=== PATIENT | female | born 1940 | race Caucasian/White ===

== ENCOUNTER → 2021-05-08 17:41 | Outpatient (CLI) | payer MEDICARE, SELFPAY ==
--- NOTE | ~2021-05-08 | DEXA_ITS ---
Bone Density Report Name: Brynn Damian Age: 81 Sex: Female Ethnicity: White Date of : 1940 Indication: postmenopausal; screening for osteoporosis; height loss; Referring Provider: YaniDave Study: Bone densitometry was performed. Exam Date: May 08, 2021 Accession number: [id number] Bone Density: Region BMD T-score Z-score Classification AP Spine (L1, L4) 0.944 -0.8 1.8 Normal Femoral Neck (Left) 0.634 -1.9 0.3 Osteopenia Total Hip (Left) 0.731 -1.7 0.3 Osteopenia Femoral Neck (Right) 0.666 -1.6 0.6 Osteopenia Total Hip (Right) 0.703 -2.0 0.0 Osteopenia Total Hip Mean 0.717 -1.9 0.2 Osteopenia World Health Organization criteria for BMD impression classify patients as: Normal (T-score at or above -1.0), Osteopenia (T-score between -1.0 and -2.5), or Osteoporosis (T-score at or below -2.5). 10-year Fracture Risk(1): Major Osteoporotic Fracture 11% Hip Fracture 3.4% Reported Risk Factors: [place] (), Neck BMD=0.634, BMI=16.7 (1) FRAX(R) Version 3.08. Fracture probability calculated for an untreated patient. Fracture probability may be lower if the patient has received treatment. Clinical Information Provided by Patient: Has used the following medications: Vitamin D Patient maximum height was 60 Menopause Age: 53 No regular weight bearing exercise Onset of menses at age 14 Number of children 3 Impression: The patient has low bone mass, based on the Right Total Hip T-score. The patient has an estimated ten-year risk of hip fracture of 3.4% and an estimated ten-year risk of major fracture of 11%, based on the WHO FRAX algorithm. Discussion: BONE DENSITY IS LOW AT ONE OR MORE SKELETAL SITES. THE PATIENT'S BMD AND CLINICAL RISK FACTORS CONTRIBUTE TO THIS PATIENT'S INCREASED RISK OF FRACTURE. This patient's lowest T-score is low at one or more skeletal sites. It meets the World Health Organization's (WHO) criteria for ?low bone mass? (T-score between -1.0 and -2.5). The patient's 10-year risk of hip fracture as calculated by FRAX exceeds the threshold where pharmacological therapy is recommended by the National Osteoporosis Foundation (NOF). However, all treatment decisions require clinical judgment and consideration of individual patient factors, including patient preferences, comorbidities, previous drug use, risk factors not captured in the FRAX model (e.g., frailty, falls, vitamin D deficiency, increased bone turnover, interval significant decline in bone density) and possible under or overestimation of fracture risk by FRAX. The patient should follow a healthful lifestyle (good nutrition with adequate calcium and vitamin D, and appropriate weight-bearing exercise). Follow-Up: Consider a repeat BMD and Vertebral Fracture Assessment (VFA) exam in 2 years or so
--- NOTE | ~2021-05-08 | MM_ITS ---
EXAMINATION: MM screening eddie BI w marialuisa HISTORY: Screening TECHNIQUE: Craniocaudal and mediolateral oblique 3-D tomosynthesis images were obtained and synthetic 2-D images were generated. CAD analysis was submitted and interpreted. COMPARISON: Comparison to multiple prior studies sequentially, with oldest reviewed study dated 05/2013. BREAST PARENCHYMAL COMPOSITION: The breasts are heterogenously dense, which may obscure small masses FINDINGS: There is no evidence of suspicious mass, calcification, or architectural distortion to sugg est malignancy in either breast. There has been no suspicious interval change. IMPRESSION: 1. No mammographic evidence of malignancy. 2. Recommend routine screening mammography in one year. BI-RADS Category 1: Negative Reviewed, dictated and finalized at location A.
== END ==
PROVIDERS: PCP Internal Medicine; Visit Provider Internal Medicine
DX: Z12.31 Encounter for screening mammogram for malignant neoplasm of breast (principal); Z78.0 Asymptomatic menopausal state; M85.89 Other specified disorders of bone density and structure, multiple sites
CPT/HCPCS: 77063; 77067; 77080

== ENCOUNTER 2024-02-14 14:54 | Emergency (ER) | payer MEDICARE, SELFPAY ==
[2024-02-14] VITALS (10 sets, daily range): BP systolic 117–170; BP diastolic 46–110; PULSE 68–97; RESP 12–25; TEMP 36.6; O2SAT 97–100
--- NOTE | ~2024-02-14 | CT_ITS ---
EXAMINATION: CT brain wo con DATE: 02/14/2024 15:35 INDICATION: fall . TECHNIQUE: Computed tomography (CT) of the head was performed without intravenous contrast. The mA wa s adjusted according to patient size. Iterative reconstruction technique was employed. The dose-lengt h product was 605.33 mGy-cm. COMPARISON: None. FINDINGS: No acute intracranial hemorrhage or extra-axial fluid collection. No hydrocephalus, mass, or herniation. No acute ischemic infarct. Unremarkable dural venous sinus attenuation. No acute osseous abnormality. The aerated spaces are clear. Moderate atrophy and chronic white matter change. Atherosclerotic intracranial calcification. IMPRESSION: No acute intracranial process. Reviewed, dictated and finalized at location K.
[2024-02-14] MEDS: LORazepam INJ (*CRX) 2 MG/ML VIAL 0.5 MG IV PUSH (15:39)
[2024-02-14] MEDS: SODIUM CHLORIDE 0.9% IV 1,000 ML 999 ML IV CONT (15:40)
[2024-02-14 15:54] LABS: Basophils Absolute Auto 0.1 K/mm3 (0.0-0.1); Basophils Percent Auto 0.6 % (0.2-1.2); Eosinophils Absolute Auto 0.1 K/mm3 (0-0.3); Eosinophils Percent Auto 0.6 % (0-4.4); Hemoglobin 15.5 g/dL (12.0-15.0); Immature Granulocyte Absolute 0.03 K/mm3 (0.00-0.031); Immature Granulocyte Percent A 0.4 % (0-0.5); Lymphocytes Absolute Auto 1.13 K/mm3 (0.9-3.2); Mean Corpuscular HGB Conc 33.7 g/dl (32-36); Mean Corpuscular Hemoglobin 30.8 pg (26-34); Mean Corpuscular Volume 91.3 fl (80-100); Mean Platelet Volume 11.1 fl (7.4-10.4); Monocytes Absolute Auto 0.7 K/mm3 (0.1-0.6); Monocytes Percent Auto 8.9 % (2.6-8.5); Neutrophils Absolute Auto 6.1 K/mm3 (1.3-6.7); Neutrophils Percent Auto 75.5 % (45.5-73.1); Platelet Count Result 182 k/mm3 (150-375); Red Blood Count 5.04 M/mm3 (4.2-5.4); Red Cell Distribution Width 14.3 % (11.5-14.5); White Blood Count 8.1 K/mm3 (4.5-10.0)
[2024-02-14 15:55] LABS: Appearance Urine Clear (Clear); Bilirubin Urine Negative (Negative); Blood Urine Negative (Negative); Color Urine Yellow (Yellow); Glucose Urine UA 3+ mg/dL (Negative); Ketones Urine Trace mg/dL (Negative); Leukocyte Esterase Ur Negative LEU/UL (Negative); Nitrate Urine Negative (Negative); Protein Urine Negative (Negative); Urobilinogen Urine 0.2 mg/dL (<2.0); pH Urine 5.5 (5.0-9.0)
[2024-02-14 16:11] LABS: Specific Grav Ur 1.034 (1.001-1.035)
[2024-02-14 16:12] LABS: Add Urine Microscopic? NO; Alanine Aminotransferase 34 U/L (6-35); Alkaline Phosphatase 103 U/L (38-126); Anion Gap 13 mmol/L (4-12); Aspartate Amino Transferase 56 U/L (14-36); Bilirubin,Total 1.1 mg/dL (0.2-1.3); Blood Urea Nitrogen 26 mg/dL (7-17); Calcium 10.5 mg/dL (8.4-10.2); Carbon Dioxide 24 mmol/L (22-30); Chloride 101 mmol/L (98-107); Estimated CRCL calculation 19 ml/min; Estimated Glomerular Filt Rate 43; Glucose 235 mg/dL (65-110); Potassium 3.7 mmol/L (3.4-5.0); Sodium 138 mmol/L (137-145)
--- NOTE | 2024-02-14 16:45 | ED.GENADULT ---
HPI - General Adult General Chief complaint: Unspecified Stated complaint: Bugs over body Dementia Time Seen by Provider: 02/14/24 15:06 Source: patient Mode of arrival: wheelchair Limitations: no limitations History of Present Illness HPI narrative: 83-year-old with a history of CHF, anxiety disorder, hyperlipidemia was brought in by family with a complains of weakness, bugs crawling in her body. Patient states that she has worms in her scalp which are crawling under her skin for last several weeks she also states that few of them are coming out of her right ear. Family reports that she fell a week ago and has a bruise on her right knee and patient states that bugs are under the skin she presently denies any headache or chest pain or shortness of breath Onset (ago): week(s) (1) Related Data Allergies Allergy/AdvReac Type Severity Reaction Status Date / Time No Known Allergies Allergy Verified 02/14/24 15:50 Review of Systems Review of Systems: All systems reviewed & are unremarkable except as noted in HPI and below Constitutional: Constitutional: Reports no additional constitutional complaints Eyes: Eyes: Reports no additional eye complaints Cardiovascular: Cardiovascular: Reports no additional cardiovascular complaints Respiratory: Respiratory: Reports no additional respiratory complaints Gastrointestinal: Gastrointestinal: Reports no additional gastrointestinal complaints Musculoskeletal: Musculoskeletal: Reports no additional musculoskeletal complaints PMFSH Family History Family History Other Diabetes mellitus Family history of cardiovascular disease Hypertension Social History Social History Smoking status: Former smoker Alcohol intake: current Exam Narrative: GENERAL: Well-appearing, anxious , and in no acute distress. HEAD: Normocephalic, atraumatic. EYES: PERRLA and EOMI. ENT: Nares clear, no rhinorrhea or epistaxis. Mucous membranes moist. no worms in the ears NECK: Supple. CHEST: Clear to auscultation. No respiratory distress. HEART: Regular rate and rhythm. No murmur heard. Normal peripheral pulses. ABDOMEN: Soft, nontender, nondistended, normal active bowel sounds. EXTREMITIES: Normal range of motion. No edema. a small old bruise on the medial aspect of the right knee SKIN: Warm, dry, no rash. NEURO: No focal deficits. Alert and oriented x3. PSYCH: Normal mood and affect. Course Course Emergency Course: Patient is little more, after IV Ativan. I did inform her and the family about her lab work, CT scan. Patient follows with Dr. Saez in [place]. Advised him to follow with her primary doctor meanwhile we will start her on Seroquel 25 mg p.o. q.h.s.. I also advised to increase the dose of hydroxyzine 10 mg tablet to 3 times a day Vital Signs Vital signs: Vital Signs Temperature 36.6 C 02/14/24 14:57 Pulse Rate 97 02/14/24 14:57 Respiratory Rate 16 02/14/24 14:57 Blood Pressure 170/110 H 02/14/24 14:57 Pulse Oximetry 100 02/14/24 14:57 Oxygen Delivery Room Air 02/14/24 14:57 Temperature 36.6 C 02/14/24 14:57 Pulse Rate 68 02/14/24 16:16 Respiratory Rate 16 02/14/24 16:16 Blood Pressure 117/54 L 02/14/24 16:16 Pulse Oximetry 97 02/14/24 16:16 Oxygen Delivery Room Air 02/14/24 14:57 Medical Decision Making Medical Records Medical records reviewed: Yes I reviewed the external patient's medical records. Vital Signs Vital Signs: Vital Signs Temperature 36.6 C 02/14/24 14:57 Pulse Rate 97 02/14/24 14:57 Respiratory Rate 16 02/14/24 14:57 Blood Pressure 170/110 H 02/14/24 14:57 Pulse Oximetry 100 02/14/24 14:57 Oxygen Delivery Room Air 02/14/24 14:57 Temperature 36.6 C 02/14/24 14:57 Pulse Rate 68 02/14/24 16:16 Respiratory Rate 16 02/14/24 16:16 Blood Pressure 117/54 L
== END 2024-02-14 17:53 | disposition home or self-care (01) ==
PROVIDERS: Emergency Provider Family Medicine; PCP Internal Medicine
DX: F41.9 Anxiety disorder, unspecified (principal); R20.2 Paresthesia of skin; I50.9 Heart failure, unspecified; E78.5 Hyperlipidemia, unspecified; Z87.891 Personal history of nicotine dependence
CPT/HCPCS: 36415; 70450; 80053; 81003; 84443; 85025; 96361; 96374; 99284; J2060; J7030